=== PATIENT | male | born 1990 | race Two or more races ===

== ENCOUNTER 2017-09-20 12:11 | Outpatient (CLI) | payer OTHER | END 2017-09-20 14:11 | disposition home or self-care (01) | LOC: ECT 12:11 | DX: F33.2 Major depressive disorder, recurrent severe without psychotic features (principal); Z90.89 Acquired absence of other organs; Z90.49 Acquired absence of other specified parts of digestive tract; Z91.5 Personal history of self-harm; G47.10 Hypersomnia, unspecified ==